=== PATIENT | female | born 1955 | race Caucasian/White ===

== ENCOUNTER → 2017-03-12 | Outpatient (CLI) | payer BC ==
--- NOTE | 2017-03-12 15:16 | MAMMOGRAPHY REPORT ---
BILATERAL DIGITAL SCREENING MAMMOGRAM TOMOSYNTHESIS WITH CAD: 03/12/2017 TECHNIQUE: Breast tomosynthesis in addition to standard 2D mammography was performed. Current study was also evaluated with a Computer Aided Detection (CAD) system. COMPARISON: Comparison is made to exams dated: 01/19/2016 mammogram, 01/13/2015 mammogram, 11/24/2013 mammogram, 09/22/2012 mammogram, 08/21/2011 mammogram, and 08/01/2010 mammogram - [facility]. BREAST COMPOSITION: The tissue of both breasts is almost entirely fatty. FINDINGS: No suspicious masses, calcifications, or areas of architectural distortion are noted in ei ther breast. There has been no significant interval change compared to prior exams. IMPRESSION: ACR BI-RADS CATEGORY 1: NEGATIVE There is no mammographic evidence of malignancy. A 1 year screening mammogram is recommended. The pa tient will receive written notification of the results. Approximately 10% of breast cancers are not detected with mammography. A negative mammographic report should not delay biopsy if a clinically suggestive mass is present. Sendy Ceballos M.D. ah/:03/12/2017 11:34:50 Hand Inserter Operator: Abby Will RT(R)(M), [facility] letter sent: Normal 1/2 BI-RADS Code: ACR BI-RADS Category 1: Negative
== END | disposition home or self-care (01) ==
LOC: C.MAMM 10:34
PROVIDERS: ATTEND Family Medicine
DX: Z12.31 Encounter for screening mammogram for malignant neoplasm of breast (principal)

== ENCOUNTER → 2017-10-28 | Outpatient (CLI) | payer OTHER ==
[~2017-10-28] MED LIST: ATOR-24 PO; CYCL10TA6 PO; DIAZ-165 PO; LEVO100T7 PO; MELO7.5T5 PO; TRAM-10 PO
--- NOTE | 2017-10-28 15:14 | DIAGNOSTIC IMAGING REPORT ---
CHEST 2 VIEWS ROUTINE CLINICAL HISTORY: pat preoperative COMPARISON STUDY: No previous studies for comparison. FINDINGS: The bones soft tissues and hemidiaphragms are normal. The cardiomediastinal silhouette is normal. The lungs are clear. The pulmonary vasculature is normal. IMPRESSION: Negative chest. The above report was generated using voice recognition software. It may contain grammatical, syntax or spelling errors. Electronically signed by: Wade Hopkins M.D. 10/28/2017 3:12 PM Dictated Date/Time: 10/28/2017 3:12 PM
[2017-10-28 15:19] LABS: BASO % 0.5 %; BASO ABS # 0.03 K/uL (0-0.2); EOS % 2.1 %; EOS ABS # 0.14 K/uL (0-0.5); HEMATOCRIT 39.6 % (37-47); HEMOGLOBIN 13.2 g/dL (12.0-16.0); IG# 0.01 K/uL (0.00-0.02); LYMPH % 31.4 %; LYMPH ABS # 2.07 K/uL (1.2-3.4); MEAN CORPUSCULAR HGB CONC 33.3 g/dl (32-36); MEAN PLATELET VOLUME 8.8 fL (7.4-10.4); MONO % 7.9 %; MONO ABS # 0.52 K/uL (0.11-0.59); NEUT % 57.9 %; NEUT ABS # 3.82 K/uL (1.4-6.5); PLATELET COUNT 246 K/uL (130-400); RED CELL DISTRIBUTION WIDTH CV 13.7 % (11.5-14.5); WHITE BLOOD COUNT 6.59 K/uL (4.8-10.8)
[2017-10-28 15:25] LABS: ALBUMIN 3.5 gm/dl (3.4-5.0); BLOOD UREA NITROGEN 14 mg/dl (7-18); CALCIUM 9.1 mg/dl (8.5-10.1); CARBON DIOXIDE 27 mmol/L (21-32); GLUCOSE 103 mg/dl (70-99); SODIUM 142 mmol/L (136-145)
[2017-10-28 15:44] LABS: PTT PATIENT 24.9 SECONDS (21.0-31.0)
[2017-10-29 05:44] LABS: HEMOGLOBIN A1C 5.9 % (4.5-5.6)
== END | disposition home or self-care (01) ==
LOC: C.CPL 13:47
DX: Z01.818 Encounter for other preprocedural examination (principal)

== ENCOUNTER 2017-11-20 05:46 | Inpatient (IN) | payer BC, OTHER ==
[2017-10-23 15:20] VITALS: BMI 34.0
[2017-10-28 14:17] VITALS: BMI 35.0
--- NOTE | 2017-10-28 14:25 | PAT Medication Instructions ---
Service Date Oct 28, 2017. Current Home Medication List Atorvastatin (Lipitor), 40 MG PO HS Cyclobenzaprine Hcl (Flexeril), 10 MG PO PRN Diazepam (Valium), 5 MG PO PRN Levothyroxine Sodium (Levothyroxine Sodium), 1 TAB PO HS Meloxicam (Mobic), 15 MG PO QAM Tramadol (Ultram), 50 MG PO BID PRN for PRN Medication Instructions For Your Scheduled Surgery -Check with surgeon for instructions: Meloxicam (Mobic), 15 MG PO QAM - Hold the following medications the morning of surgery: Cyclobenzaprine Hcl (Flexeril), 10 MG PO PRN - Take the following medications the morning of surgery with a sip of water: Diazepam (Valium), 5 MG PO PRN (if needed) Tramadol (Ultram), 50 MG PO BID PRN for PRN (if needed, may be take up to four hours before surgery) - Take the following medications as scheduled the night before surgery: Atorvastatin (Lipitor), 40 MG PO HS Cyclobenzaprine Hcl (Flexeril), 10 MG PO PRN (if needed) Diazepam (Valium), 5 MG PO PRN (if needed) Levothyroxine Sodium (Levothyroxine Sodium), 1 TAB PO HS Tramadol (Ultram), 50 MG PO BID PRN for PRN (if needed) If you have any questions please call us at [phone] or [phone] or [phone]
--- NOTE | 2017-11-19 12:38 | HISTORY & PHYSICAL EXAMINATION ---
DATE OF ADMISSION: 11/20/2017 CHIEF COMPLAINT: Left knee pain. HISTORY OF PRESENT ILLNESS: The patient is a 62-year-old female with known osteoarthritis about her left knee. She has had previous corticosteroid as well as viscosupplementation injections. She continues to have pain and disability with activities of daily living. She has pain with prolonged weightbearing and standing activities. She has difficulty with any kneeling, bending, or squatting activities. Due to ongoing pain and disability, she now desires to proceed with left total knee arthroplasty. PAST MEDICAL HISTORY: Hypercholesterolemia, hypothyroidism, osteoarthritis, obesity. PAST SURGICAL HISTORY: x2, foot surgery, shoulder surgery. MEDICATIONS: Atorvastatin, levothyroxine, tramadol p.r.n. ALLERGIES: TETANUS VACCINE, WHICH CAUSES A RED SWOLLEN RASH. SOCIAL HISTORY AND REVIEW OF SYSTEMS: Noncontributory. PHYSICAL EXAMINATION: GENERAL: Well-nourished, well-developed female who appears stated age. HEENT: Normocephalic, atraumatic, extraocular movements intact, oropharynx pink and moist. NECK: Supple without adenopathy. LUNGS: Clear to auscultation bilaterally. HEART: Regular rate and rhythm. ABDOMEN: Soft, nontender, nondistended, obese. EXTREMITIES: The upper extremities are within normal limits. The left knee has a neutral alignment. Her range of motion is approximately 0-125 degrees. She complains primarily of medial compartment pain. She has mild crepitus with range of motion. X-RAYS: X-rays were reviewed. She has a neutrally aligned knee. She has bone on bone arthritis of medial compartment with complete loss of the joint space. She has mild degenerative change about the patellofemoral joint. ASSESSMENT: Left knee degenerative joint disease. PLAN: Risks versus benefits were discussed, consent was obtained. The patient's primary care physician is Dr. Shana Aden. We will proceed with left total knee arthroplasty as indicated.
[~2017-11-20] VITALS: Ht 167.6 cm; Wt 95.5 kg
[2017-11-20] VITALS (10 sets, daily range): BP systolic 103–139; BP diastolic 67–79; PULSE 78–96; TEMP 36.4–37; O2SAT 93–100; Ht 167.6 cm; Wt 95.5 kg
[2017-11-20] MEDS ORDERED: ACETAMINOPHEN 500 MG TAB PO SCH (06:00)
[2017-11-20] MEDS ORDERED: LACTATED RINGER'S 1000ML 1,000 ML IV SCH (06:00)
[2017-11-20] MEDS ORDERED: DEXAMETHASONE 4 MG TAB PO SCH (06:00)
[2017-11-20] MEDS ORDERED: METOCLOPRAMIDE HCL 10 MG TAB PO SCH (06:00)
[2017-11-20] MEDS ORDERED: FAMOTIDINE 20 MG TAB PO SCH (06:00)
[2017-11-20] MEDS ORDERED: GABAPENTIN 300 MG CAP PO SCH (06:00)
[2017-11-20] MEDS ORDERED: LACTATED RINGER'S 1000ML 500 ML IV SCH (06:00)
[2017-11-20] MEDS ORDERED: CeleBREX 200 MG CAP PO SCH (06:00)
[2017-11-20] MEDS ORDERED: CEFAZOLIN 2000MG IV PUSH 15 ML IV SCH (06:00)
[2017-11-20] MEDS: TRANEXAMIC ACID INJ 1,000 MG x 2 Bags IV SCH ×4 (06:30→07:46)
[2017-11-20] MEDS ORDERED: BUPIVACAINE 0.5 % 5 MG/1 ML PF 10ML VIAL ONE (06:33)
[2017-11-20] MEDS ORDERED: BUPIVACAINE 0.25% 30 ML VIAL ONE (06:33)
[2017-11-20] MEDS ORDERED: LIDOCAINE HCL 2% 2 ML VIAL (20MG/ML) ONE (06:37)
[2017-11-20] MEDS ORDERED: PROPOFOL IV EMULSION 10 MG/ML 20 ML VIAL ONE (06:37)
[2017-11-20] MEDS ORDERED: MIDAZOLAM HCL 1 MG/ML 2ML VIAL ONE ×2 (06:38→09:00)
[2017-11-20] MEDS ORDERED: ORTHO JOINT ANESTHETIC ONE (06:55)
[2017-11-20] MEDS ORDERED: POVIDONE-IODINE OP SOLN 30 ML BTL ONE (06:55)
[2017-11-20] MEDS ORDERED: BACITRACIN 50000 UNIT VIAL ONE (06:55)
--- NOTE | 2017-11-20 07:10 | History & Physical Bridge Note ---
H&P Re-Evaluation Bridge Note: I have examined the patient, reviewed the History & Physical and in the interval since the performance of the History & Physical I have noted the following changes of clinical significance: No changes noted
[2017-11-20] MEDS ORDERED: FENTANYL CITRATE INJ 50 MCG/1 ML 2 ML VIAL ONE (08:21)
[2017-11-20] MEDS: ROPIVACAINE 5MG/ML 30 ML 150 MG, BUPIVACAINE 0.5% MPF INJ 30 ML, EpINEphrine HCL INJ 0.... INFIL SCH ×24 (09:07→09:09)
--- NOTE | 2017-11-20 09:11 | [facility] Post Operative Brief Note ---
Immediate Operative Summary Operative Date Nov 20, 2017. Pre-Operative Diagnosis Left Knee Degenerative Joint Disease Post-Operative Diagnosis Left Knee Degenerative Joint Disease Procedure(s) Performed Left Total Knee Arthroplasty Surgeon Dr. Baxter Qa Automation Architect Surgeon(s) Rigo Patricio PA-C Estimated Blood Loss 10 ML Findings Consistent with Post-Op Diagnosis Specimens Permanent A. Left Knee Bone and Tissue Drains None Anesthesia Type MAC Spinal Regional Complication(s) none Disposition Accompanied Pt To Recover: no Disposition: Recovery Room / PACU Overlapping Procedure I was present for: the critical portions of procedure. I was immediately available: during the entire case
[2017-11-20] MEDS ORDERED: ATROPINE SULFATE 0.1 MG/ML 5ML SYR IV PRN (09:30)
[2017-11-20] MEDS ORDERED: PHENYLEPHRINE 100MCG/ML 5ML SYR IV PRN (09:30)
[2017-11-20] MEDS ORDERED: MoRPHine SULFATE 10 MG/ML CARP/VIAL IV PRN (09:30)
[2017-11-20] MEDS ORDERED: ONDANSETRON INJ 2 MG/ML 2 ML VIAL IV PRN (09:30)
[2017-11-20] MEDS ORDERED: KETOROLAC TROMETHAMINE 30 MG/ML VIAL IV. PRN (09:30)
[2017-11-20] MEDS ORDERED: EpHEDrine SULFATE INJ 50 MG/ML AMP IV PRN (09:30)
[2017-11-20] MEDS ORDERED: BISACODYL 10 MG SUPP PR PRN (10:00)
[2017-11-20] MEDS ORDERED: ALUMINUM/MAGNESIUM/SIMETH (MAALOX MAX) 30 ML UDC PO PRN (10:00)
[2017-11-20] MEDS ORDERED: DIAZEPAM 5MG TAB PO PRN (10:00)
[2017-11-20] MEDS ORDERED: MAGNESIUM HYDROXIDE SUSP 30 ML UDC PO PRN (10:00)
--- NOTE | 2017-11-20 10:07 | DIAGNOSTIC IMAGING REPORT ---
L KNEE 1 OR 2 VIEWS ROUTINE CLINICAL HISTORY: 62 years-old Female presenting with AP/LATERAL IN PACU LEFT KNEE. TECHNIQUE: Frontal and lateral views of the left knee were obtained. COMPARISON: None. FINDINGS: Postsurgical changes of total left knee arthroplasty with patellar resurfacing. No malalignment. No periprosthetic fracture. Screw tracks evident through the medial and lateral tibial plateau. A surgical drain is in place. Expected intra-articular and soft tissue emphysema. IMPRESSION: Expected postsurgical appearance status post total left knee arthroplasty with patellar resurfacing. Electronically signed by: Reece Torre M.D. 11/20/2017 10:06 AM Dictated Date/Time: 11/20/2017 10:05 AM
--- NOTE | 2017-11-20 11:23 | Anesthesiology Progress Note ---
Anesthesia Post Op Note Date & Time Nov 20, 2017 at 11:23 Vital Signs Pain Intensity: 0 Vital Signs Past 12 Hours Date Time Temp Pulse Resp B/P (MAP) Pulse Ox O2 Delivery O2 Flow Rate FiO2 11/20/17 10:49 78 11 11/20/17 10:49 78 11 98 11/20/17 10:46 108/69 11/20/17 10:44 76 12 99 11/20/17 10:44 76 12 11/20/17 10:41 106/72 11/20/17 10:39 77 14 99 11/20/17 10:39 77 14 11/20/17 10:38 78 15 99 11/20/17 10:38 77 15 11/20/17 10:36 98/70 11/20/17 10:33 77 14 11/20/17 10:33 77 14 99 11/20/17 10:32 73 13 11/20/17 10:32 72 13 99 11/20/17 10:31 106/67 11/20/17 10:28 36.7 78 16 106/67 (76) 99 Nasal Cannula 2 11/20/17 10:28 74 13 98 11/20/17 10:28 74 13 11/20/17 10:27 76 14 99 11/20/17 10:27 76 14 11/20/17 10:26 104/70 11/20/17 10:22 75 13 11/20/17 10:22 74 13 100 11/20/17 10:21 101/70 11/20/17 10:17 78 11 11/20/17 10:17 76 11 100 11/20/17 10:16 106/70 11/20/17 10:12 78 12 100 11/20/17 10:12 77 12 11/20/17 10:11 81 12 11/20/17 10:11 81 12 115/66 100 11/20/17 10:06 82 17 11/20/17 10:06 82 17 95/63 100 11/20/17 10:01 82 16 102/67 100 18 10:01 81 16 11/20/17 09:56 80 14 99/66 100 18 09:56 80 14 18 09:52 101/68 11/20/17 09:51 80 18 100 11/20/17 09:51 37.1 81 16 101/68 (76) 100 Oxymask 10 11/20/17 09:51 80 18 11/20/17 06:18 36.5 82 20 139/79 99 Room Air Notes Mental Status: alert / awake / arousable, participated in evaluation Pt Amnestic to Procedure: Yes Nausea / Vomiting: adequately controlled Pain: adequately controlled Airway Patency, RR, SpO2: stable & adequate BP & HR: stable & adequate Hydration State: stable & adequate Anesthetic Complications: no major complications apparent
--- NOTE | 2017-11-20 12:18 | OPERATIVE REPORT ---
DATE OF OPERATION: 11/20/2017 PREOPERATIVE DIAGNOSIS: Osteoarthritis, left knee. POSTOPERATIVE DIAGNOSIS: Osteoarthritis, left knee. PROCEDURE: Left total knee arthroplasty. SURGEON: Dr. Baxter. UNIT MANAGER RN: YUE Hernandez ANESTHESIA: Spinal. COMPLICATIONS: None. IMPLANTS USED: Femoral size 4, tibia size 3, tibial poly 16, patella size 33. DISPOSITION: Recovery room, stable. OPERATION AND FINDINGS: Following induction of spinal anesthesia, the patient's left leg was prepped and draped in the usual sterile manner. Limb was exsanguinated with an Esmarch bandage and tourniquet was inflated to 350 mmHg. A longitudinal incision was made anteriorly. Subcutaneous tissue was sharply dissected. Electrocautery was used for hemostasis. Prepatellar bursa was incised and median parapatellar incision was performed. Patella was everted and the knee was flexed. Fat pad was removed to aid in visualization and the anterior and posterior cruciate ligaments were removed. The medial face of the tibia was cleared of soft tissue first with a Bovie and a Negrete elevator. This tissue was retracted posteriorly using a blunt Hohmann. A Faith retractor was used to expose the synovium above on the anterior aspect of the femur and this was removed down to bone. The PSI guide was placed on the distal femur and two pins were placed anteriorly and kept in position and two additional pins were placed distally and removed. The distal femoral cutting block was placed in position and the distal femoral cut was used in the +0 setting. Next, the cutting block was removed and the femoral 4 block was placed in the distal end of the femur. Care was taken to ensure appropriate external rotation and feeler gauge was used to ensure no notching would occur. The femoral block was centered on the distal femur and in the medial and lateral direction and was fixed using two bone screws. The gold pins were then removed. The oscillating saw was used to create the bone cuts and the distal femoral cutting block was removed and the reciprocating saw was used to further trim the femoral cuts as well as a deep in the area for the trochlear groove. Next, posterior condyle remnants were removed. Following this, a meniscal clamp and knife were utilized to remove the anterior portion of both medial and lateral meniscus. The proximal tibia PSI guide was placed into position and the proximal tibial cutting guide was screwed into position. The extra medullary alignment guide was utilized to ensure appropriate alignment. The proximal tibia was cut and the proximal tibial cutting block was removed and this bone fragment was removed. The appropriate guide was used to perform the notch cut on the distal femur and a lamina manager nuclear and a cochlear knife were utilized to finish both medial and lateral meniscectomies to remove any remnants of the posterior or anterior cruciate ligaments. Following this, the distal femoral component was impacted into position and blunt Laura was used to sublux the tibia anteriorly. The proximal tibia was sized and a 3 tibial tray was chosen as the size to be used. This was put into position and appropriate external rotation and a double check with extramedullary alignment guide was performed. The canal for the tibial stem was prepared first with a 17 mm drill and then the punch and a mallet and the trial tibial poly was placed. A 16 was chosen the size to be used. It was brought to extension and the patella was prepared with the patellar reamer. A 33 component was chosen the size to be used. The trial component was placed and knee was taken through a full range of motion and there was found to be no lateral subluxation of the tibia. No lateral release was required. The trials were all removed. The final components were obtained and assembled. Cement was mixed. The knee was thoroughly irrigated and the ortho mix was injected about the knee joint. The final components were cemented into position. After thoroughly suctioning and drying the bone ends, all excess cement was removed. The knee was held in extension while the cement hardened. The wound was irrigated and closed over a Hemovac drain. #1 Vicryl was used to close the extensor mechanism. Subcutaneous tissues closed using 0 Dexon. Skin was closed with rubén. Sterile dressing of Adaptic, 4 x 4's, sterile Webril, and Edgar was applied. The patient tolerated the procedure well. Due to the complex nature of the procedure, the entire surgery was performed with the operational assistance of YUE Hernandez. The assistant surveyor, under direct supervision, was involved in the actual performance of all aspects of the surgical procedure including hemostasis, tissue retraction and incision, instrument management, patient positioning, and wound closure. I attest to the content of the Intraoperative Record and any orders documented therein. Any exception s are noted below.
[2017-11-20] MEDS: FERROUS GLUCONATE 324 MG TAB PO SCH ×2 (13:03→17:50)
[2017-11-20] MEDS: D5W AND 1/2NSS + 20MEQ KCL 1,000 ML IV SCH ×2 (13:03→22:50)
[2017-11-20] MEDS: KETOROLAC TROMETHAMINE 30 MG/ML VIAL IV. SCH ×2 (13:49→20:14)
[2017-11-20] MEDS: ACETAMINOPHEN 500 MG TAB PO SCH ×2 (13:50→20:17)
[2017-11-20] MEDS: CEFAZOLIN IV 2,000 MG in SYRINGE 0 ML IV SCH ×2 (15:46→23:44)
[2017-11-20] MEDS: MoRPHine SULFATE 2 MG/ML CARP IV PRN ×2 (15:46→20:14)
[2017-11-20] MEDS: OXYCODONE HCL IR 5 MG TAB (IMMEDIATE RELEASE) PO PRN ×2 (17:51→23:44)
[2017-11-20] MEDS: DOCUSATE SODIUM 100 MG CAP PO SCH (20:15)
[2017-11-20] MEDS: SENNA 8.6 MG TAB PO SCH (20:16)
[2017-11-20] MEDS: ASPIRIN 81 MG ECTAB PO SCH (20:16)
[2017-11-20] MEDS: ATORVASTATIN 40 MG TAB PO SCH (20:16)
[2017-11-20] MEDS: LEVOTHYROXINE 100 MCG TAB PO SCH (20:17)
[2017-11-21] MEDS: KETOROLAC TROMETHAMINE 30 MG/ML VIAL IV. SCH ×2 (02:26→08:18)
[2017-11-21] MEDS: MoRPHine SULFATE 2 MG/ML CARP IV PRN ×4 (02:28→23:48)
[2017-11-21 03:14] VITALS: BP 119/77; PULSE 87; TEMP 36.5; O2SAT 97
[2017-11-21] MEDS: ACETAMINOPHEN 500 MG TAB PO SCH ×3 (05:53→21:44)
[2017-11-21 06:11] LABS: HEMATOCRIT 35.2 % (37-47); HEMOGLOBIN 12.1 g/dL (12.0-16.0); MEAN CORPUSCULAR HEMOGLOBIN 30.9 pg (25-34); MEAN CORPUSCULAR HGB CONC 34.4 g/dl (32-36); MEAN PLATELET VOLUME 9.1 fL (7.4-10.4); PLATELET COUNT 215 K/uL (130-400); RED CELL DISTRIBUTION WIDTH CV 13.6 % (11.5-14.5); RED CELL DISTRIBUTION WIDTH SD 44.9 fL (36.4-46.3); WHITE BLOOD COUNT 13.23 K/uL (4.8-10.8)
[2017-11-21 06:40] LABS: CALCIUM 8.4 mg/dl (8.5-10.1); CREATININE 0.76 mg/dl (0.60-1.20); POTASSIUM 4.3 mmol/L (3.5-5.1)
[2017-11-21] MEDS: OXYCODONE HCL IR 5 MG TAB (IMMEDIATE RELEASE) PO PRN ×2 (07:15→13:38)
[2017-11-21 07:45] VITALS: BP 118/77; PULSE 89; TEMP 36.7; O2SAT 100
[2017-11-21] MEDS: FERROUS GLUCONATE 324 MG TAB PO SCH ×3 (08:18→17:35)
[2017-11-21] MEDS: D5W AND 1/2NSS + 20MEQ KCL 1,000 ML IV SCH (08:18)
[2017-11-21] MEDS: DOCUSATE SODIUM 100 MG CAP PO SCH ×2 (09:10→20:40)
[2017-11-21] MEDS: MULTIVITAMIN TAB PO SCH (09:10)
[2017-11-21] MEDS: ASPIRIN 81 MG ECTAB PO SCH ×2 (09:10→20:39)
--- NOTE | 2017-11-21 09:52 | Orthopedic Progress Note ---
Orthopedic Progress Note Date of Service Nov 21, 2017. Subjective Post OP Day: 1 Reports: feeling well, complaints (some pain in the knee this AM) Additional Notes: Did not sleep well but otherwise feeling ok. Having some calf pain in the left lower calf which she attributes to position in bed. Objective N/V intact, dressing C/D/I, A&O x3, toes mobile Calves are soft. No overt edema of the ankles. Laura's exam does not cause overt pain but patient states she feels it does increase slightly. Date Time Temp Pulse Resp B/P (MAP) Pulse Ox O2 Delivery O2 Flow Rate FiO2 11/21/17 07:45 36.7 89 18 118/77 (91) 100 Room Air 11/21/17 07:20 Room Air 11/21/17 03:14 36.5 87 16 119/77 (91) 97 Room Air 11/20/17 23:42 Room Air 11/20/17 23:22 36.7 82 16 108/67 (81) 96 Room Air 11/20/17 19:49 37.0 92 16 111/72 (85) 93 Room Air 11/20/17 15:40 96 Room Air 11/20/17 15:11 36.9 89 16 117/71 (86) 97 2.0 11/20/17 13:54 91 16 118/76 (90) 97 Nasal Cannula 2.0 11/20/17 13:00 96 16 128/76 (93) 98 Nasal Cannula 2.0 11/20/17 12:00 93 16 121/79 (93) 100 Nasal Cannula 2.0 11/20/17 11:30 36.4 85 16 103/68 (80) 99 2.0 11/20/17 11:00 36.4 78 16 108/73 (85) 96 Nasal Cannula 2.0 11/20/17 11:00 Nasal Cannula 2.0 11/20/17 11:00 Nasal Cannula 2.0 11/20/17 10:49 78 11 11/20/17 10:49 78 11 98 11/20/17 10:46 108/69 11/20/17 10:44 76 12 99 11/20/17 10:44 76 12 11/20/17 10:41 106/72 11/20/17 10:39 77 14 99 11/20/17 10:39 77 14 11/20/17 10:38 78 15 99 11/20/17 10:38 77 15 11/20/17 10:36 98/70 11/20/17 10:33 77 14 11/20/17 10:33 77 14 99 11/20/17 10:32 73 13 11/20/17 10:32 72 13 99 11/20/17 10:31 106/67 11/20/17 10:28 36.7 78 16 106/67 (76) 99 Nasal Cannula 2 11/20/17 10:28 74 13 98 11/20/17 10:28 74 13 11/20/17 10:27 76 14 99 11/20/17 10:27 76 14 11/20/17 10:26 104/70 11/20/17 10:22 75 13 11/20/17 10:22 74 13 100 11/20/17 10:21 101/70 11/20/17 10:17 78 11 11/20/17 10:17 76 11 100 11/20/17 10:16 106/70 11/20/17 10:12 78 12 100 11/20/17 10:12 77 12 11/20/17 10:11 81 12 11/20/17 10:11 81 12 115/66 100 11/20/17 10:06 82 17 11/20/17 10:06 82 17 95/63 100 11/20/17 10:01 82 16 102/67 100 11/20/17 10:01 81 16 11/20/17 09:56 80 14 99/66 100 11/20/17 09:56 80 14 11/20/17 09:52 101/68 11/20/17 09:51 80 18 100 11/20/17 09:51 37.1 81 16 101/68 (76) 100 Oxymask 10 11/20/17 09:51 80 18 Laboratory Results 24 Hours: Test 11/21/17 05:42 Hematocrit 35.2 % Hemoglobin 12.1 g/dL Assessment & Plan Assessment: POD 1 s/p Left TKA Plan: PT/OT Watch calf pain for now. Will recheck today for possible dc to home. Pt unsure at this time if she wants to go or not. Inhouse Planning Pain Management: Celebrex, Toradol, Morphine, PO Tylenol, Oxy IR DVT Prophylaxis: TEDs, SCDs, ASA Discharge Planning Discharge Planning: home with home health
[2017-11-21 15:35] VITALS: BP 121/80; PULSE 94; TEMP 36.8; O2SAT 100
[2017-11-21] MEDS: ONDANSETRON INJ 2 MG/ML 2 ML VIAL IV PRN (20:36)
[2017-11-21] MEDS: CeleBREX 200 MG CAP PO SCH (20:39)
[2017-11-21] MEDS: ATORVASTATIN 40 MG TAB PO SCH (20:39)
[2017-11-21] MEDS: LEVOTHYROXINE 100 MCG TAB PO SCH (20:39)
[2017-11-21] MEDS: SENNA 8.6 MG TAB PO SCH (20:40)
[2017-11-21 23:25] VITALS: BP 113/72; PULSE 87; TEMP 36.9; O2SAT 96
[2017-11-22] MEDS: ONDANSETRON INJ 2 MG/ML 2 ML VIAL IV PRN (04:35)
[2017-11-22] MEDS: MoRPHine SULFATE 2 MG/ML CARP IV PRN (04:36)
[2017-11-22] MEDS: ACETAMINOPHEN 500 MG TAB PO SCH (05:25)
[2017-11-22] MEDS: FERROUS GLUCONATE 324 MG TAB PO SCH ×2 (08:03→12:30)
[2017-11-22] MEDS: ASPIRIN 81 MG ECTAB PO SCH (08:28)
[2017-11-22] MEDS: CeleBREX 200 MG CAP PO SCH (08:28)
[2017-11-22] MEDS: DOCUSATE SODIUM 100 MG CAP PO SCH (08:29)
[2017-11-22] MEDS: MULTIVITAMIN TAB PO SCH (08:29)
[2017-11-22 08:45] VITALS: BP 128/81; PULSE 97; TEMP 36.5; O2SAT 97
[2017-11-22] MEDS ORDERED: FRRG PO (10:12)
[2017-11-22] MEDS ORDERED: ONDA-170 PO (10:12)
[2017-11-22] MEDS ORDERED: RXC5 PO (10:12)
[2017-11-22] MEDS ORDERED: ACET-24 PO (10:12)
[2017-11-22] MEDS ORDERED: ASPI-461 PO (10:12)
--- NOTE | 2017-11-22 10:15 | Discharge Instructions ---
Discharge Instructions Date of Service Nov 22, 2017. Admission Reason for Admission: Left Knee Osteoarthritis Discharge Discharge Diagnosis / Problem: Left TKA Discharge Goals Goal(s): Decrease discomfort, Improve function, Increase independence, Therapeutic intervention Activity Recommendations Activity Limitations: per Instructions/Follow-up section ACTIVITY RECOMMENDATIONS: SELF CARE INSTRUCTIONS AFTER TOTAL KNEE REPLACEMENT A. You may need to continue a physical therapy program after discharge from the hospital. There are several options available to you. Your doctor will assist you in selecting the best one for you. 1. An out-patient facility 2 to 3 times a week for therapy or home therapy. 2. Continue working on all exercises taught to you in the hospital. Your goals should be to increase bending of your knee to 90 degrees and beyond and to fully straighten your knee. B. You may progress at your own pace from walking with a walker or crutches to a cane; then to no assistive devices. C. Make walking a part of your daily routine. Be up as much as comfortable with rest periods throughout the day. Rest with leg elevation is very important. Use the ice wrap frequently for the first 3-4 weeks. D. There are no restrictions on activities. You may ride in a car, shop, participate in all terrain vehicle racer and all social activities. E. Wear the long elastic stockings (MAY hose) 20 hours a day for 2 weeks after surgery. They can be removed several times a day for laundering and for a bath. F. You may shower, no tub baths until cleared by your doctor. SPECIAL CARE INSTRUCTIONS: VERY IMPORTANT TO READ AND REVIEW A. There are a few signs you need to watch for after you are home. Call [facility] if you notice any of the followin. Increased severe knee pain. Some pain is expected especially when you exercise. 2. Increased swelling in your leg or knee; pain or swelling of the calf muscle in either lower leg. 3. Any fluid drainage from the incision. 4. Shortness of breath or chest pain. B. Please call [facility] at if you have any concerns or questions about your operation or recovery. The doctor or his nurse will return your call promptly. C. You must take antibiotics before dental work, bladder, bowel or other surgery. Your doctor will provide you with a permanent care to carry describing this precaution. IMPORTANT: * REMEMBER TO TAKE ASPIRIN, 81 MG, TWICE DAILY FOR 4 WEEKS UNLESS OTHERWISE DIRECTED. THIS IS YOUR BLOOD THINNER. * HIGH RISK PATIENTS MAY BE PRESCRIBED A STRONGER BLOOD THINNER. THIS WILL BE PROVIDED AT DISCHARGE. * CALL IF INCREASED PAIN, REDNESS, DRAINAGE OR FEVER GREATER THAT 101. * WEAR MAY HOSE 20 HOURS PER DAY FOR 2 WEEKS. * YOU MAY HAVE A LARGE BAND-AID LIKE DRESSING (SILVERON). THIS WILL REMAIN ON YOUR INCISION FOR 7 DAYS, THEN CAN BE REMOVED. IF INCISION IS LEAKING THROUGH DRESSING, CALL THE OFFICE . FOLLOW UP VISIT: If appointment is not already scheduled: Please call [facility] to make a follow-up appointment for 2 weeks after your surgery at . . Current Hospital Diet Patient's current hospital diet: Regular Diet Discharge Diet Recommended Diet: Regular Diet Procedures Procedures Performed: Left Total Knee Arthroplasty Pending Studies Studies pending at discharge: no Laboratory Results Hemoglobin A1c Test 10/28/17 14:45 Range/Units Estimated Average Glucose 123 mg/dl Hemoglobin A1c 5.9 H 4.5-5.6 % Medical Emergencies . Who to Call and When: Medical Emergencies: If at any time you feel your situation is an emergency, please call 911 immediately. . Non-Emergent Contact Non-Emergency issues call your: Primary Care Provider . "Provider Documentation" section prepared by Xiomara Goldstein. . [place] Drug Monitoring Program Search Results: patient reviewed within database, no issues identified
--- NOTE | 2017-11-22 10:18 | Orthopedic Progress Note ---
Orthopedic Progress Note Date of Service Nov 22, 2017. Subjective Post OP Day: 2 Reports: feeling well, nausea / vomiting (mild nausea after iron pill today), pain controlled w PO medications, Denies: chest pain, SOB, light headedness, calf pain Objective calves soft nontender (some mild continuing calf pain. ), N/V intact, capillary refill less than 2 sec., dressing C/D/I, A&O x3, toes mobile Date Time Temp Pulse Resp B/P (MAP) Pulse Ox O2 Delivery O2 Flow Rate FiO2 11/22/17 08:45 36.5 97 16 128/81 (97) 97 Room Air 11/21/17 23:42 Room Air 11/21/17 23:25 36.9 87 16 113/72 (86) 96 Room Air 11/21/17 15:35 36.8 94 18 121/80 (94) 100 Room Air 11/21/17 15:30 Room Air Assessment & Plan Assessment: POD 2 s/p Left TKA Plan: PT/OT Will order doppler today to rule out DVT given continued calf pain. if neg, plan for DC home today Inhouse Planning Pain Management: Celebrex, PO Tylenol, Oxy IR DVT Prophylaxis: TEDs, SCDs, ASA Discharge Planning Discharge Planning: home with home health Pain Management: PO Tylenol, Oxy IR DVT Prophylaxis: TEDs, ASA Therapy: Physical Therapy
--- NOTE | 2017-11-22 10:25 | Discharge Instructions ---
Discharge Instructions Date of Service Nov 22, 2017. Admission Reason for Admission: Left Knee Osteoarthritis Discharge Discharge Diagnosis / Problem: Left TKA Discharge Goals Goal(s): Decrease discomfort, Improve function, Increase independence, Therapeutic intervention Activity Recommendations Activity Limitations: per Instructions/Follow-up section ACTIVITY RECOMMENDATIONS: SELF CARE INSTRUCTIONS AFTER TOTAL KNEE REPLACEMENT A. You may need to continue a physical therapy program after discharge from the hospital. There are several options available to you. Your doctor will assist you in selecting the best one for you. 1. An out-patient facility 2 to 3 times a week for therapy or home therapy. 2. Continue working on all exercises taught to you in the hospital. Your goals should be to increase bending of your knee to 90 degrees and beyond and to fully straighten your knee. B. You may progress at your own pace from walking with a walker or crutches to a cane; then to no assistive devices. C. Make walking a part of your daily routine. Be up as much as comfortable with rest periods throughout the day. Rest with leg elevation is very important. Use the ice wrap frequently for the first 3-4 weeks. D. There are no restrictions on activities. You may ride in a car, shop, participate in leadership development manager and all social activities. E. Wear the long elastic stockings (MAY hose) 20 hours a day for 2 weeks after surgery. They can be removed several times a day for laundering and for a bath. F. You may shower, no tub baths until cleared by your doctor. SPECIAL CARE INSTRUCTIONS: VERY IMPORTANT TO READ AND REVIEW A. There are a few signs you need to watch for after you are home. Call [facility] if you notice any of the followin. Increased severe knee pain. Some pain is expected especially when you exercise. 2. Increased swelling in your leg or knee; pain or swelling of the calf muscle in either lower leg. 3. Any fluid drainage from the incision. 4. Shortness of breath or chest pain. B. Please call [facility] at if you have any concerns or questions about your operation or recovery. The doctor or his nurse will return your call promptly. C. You must take antibiotics before dental work, bladder, bowel or other surgery. Your doctor will provide you with a permanent care to carry describing this precaution. IMPORTANT: * REMEMBER TO TAKE ASPIRIN, 81 MG, TWICE DAILY FOR 4 WEEKS UNLESS OTHERWISE DIRECTED. THIS IS YOUR BLOOD THINNER. * HIGH RISK PATIENTS MAY BE PRESCRIBED A STRONGER BLOOD THINNER. THIS WILL BE PROVIDED AT DISCHARGE. * CALL IF INCREASED PAIN, REDNESS, DRAINAGE OR FEVER GREATER THAT 101. * WEAR MAY HOSE 20 HOURS PER DAY FOR 2 WEEKS. * YOU MAY HAVE A LARGE BAND-AID LIKE DRESSING (SILVERON). THIS WILL REMAIN ON YOUR INCISION FOR 7 DAYS, THEN CAN BE REMOVED. IF INCISION IS LEAKING THROUGH DRESSING, CALL THE OFFICE . FOLLOW UP VISIT: If appointment is not already scheduled: Please call [facility] to make a follow-up appointment for 2 weeks after your surgery at . . Current Hospital Diet Patient's current hospital diet: Regular Diet Discharge Diet Recommended Diet: Regular Diet Procedures Procedures Performed: Left Total Knee Arthroplasty Pending Studies Studies pending at discharge: no Laboratory Results Hemoglobin A1c Test 10/28/17 14:45 Range/Units Estimated Average Glucose 123 mg/dl Hemoglobin A1c 5.9 H 4.5-5.6 % Medical Emergencies . Who to Call and When: Medical Emergencies: If at any time you feel your situation is an emergency, please call 911 immediately. . Non-Emergent Contact Non-Emergency issues call your: Primary Care Provider . "Provider Documentation" section prepared by Xiomara Goldstein. . [place] Drug Monitoring Program Search Results: patient reviewed within database, no issues identified
--- NOTE | 2017-11-22 10:29 | DIAGNOSTIC IMAGING REPORT ---
L VENOUS DOPP LOWER EXT UNILAT CLINICAL HISTORY: 62 years-old Female presenting with Rule out DVT of LLE, recent knee surgery. TECHNIQUE: Real-time grayscale and color and spectral Doppler ultrasound imaging of the veins of the left lower extremity was performed. Compression and augmentation were also utilized. COMPARISON: None. FINDINGS: LEFT: Common femoral vein: Patent. Greater saphenous vein: Patent. Deep femoral vein: Patent. Femoral vein: Patent. Popliteal vein: Patent. Calf veins: Patent. Other: None. IMPRESSION: No evidence of deep venous thrombosis. Electronically signed by: Reece Torre M.D. 11/22/2017 10:27 AM Dictated Date/Time: 11/22/2017 10:27 AM
[2017-11-22] MEDS: OXYCODONE HCL IR 5 MG TAB (IMMEDIATE RELEASE) PO PRN (10:37)
[2017-11-22 12:20] VITALS: BP 128/81; PULSE 97; TEMP 36.5; O2SAT 97
--- NOTE | 2017-11-27 12:32 | DISCHARGE SUMMARY ---
DISCHARGE DIAGNOSIS: Degenerative joint disease, left knee. SECONDARY DIAGNOSES: Hypercholesterolemia, hypothyroidism, osteoarthritis, obesity. CONSULTS: None. COMPLICATIONS: None. PROCEDURES: Left total knee arthroplasty performed by Dr. Baxter on 11/20/2017. BRIEF HISTORY: As dictated in the history of present illness. HOSPITAL SUMMARY: Patient was admitted on the above date and had the above noted surgery performed which she tolerated well. On the first postoperative day, patient was feeling well and had some pain in the knee that morning. He did not sleep well. He was having some calf pain in the left lower calf, which she attributed to positioning in the bed. Neurovascular was intact. Dressings clean, dry, and intact. Toes are mobile. Calves were soft, and she had no overt edema of the ankles. Homans' exam did not cause overt pain, but patient stated that she felt that the pain was slightly increased with dorsiflexion of the foot. Vital signs were stable, she was afebrile. Hemoglobin was 12.1. She was started on physical therapy protocol and continued on DVT prophylaxis and pain management. Plans were to recheck her late in the day to see how she was doing, if she could possibly go home versus staying overnight. If the calf pain worsened or continued, we would plan for an ultrasound. Patient decided to stay for 1 more day, and by the morning of her second postoperative day, she was having some nausea after her iron pill but was otherwise feeling well. Calves were soft and nontender. She has continued with the mild calf pain. Neurovascular was intact. Dressings clean, dry, and intact. Toes were mobile. Doppler was ordered to rule out DVT. The Doppler did come back negative for DVT. She had been continued on PT protocol and was progressing and was felt she could be discharged to home on 11/22/2017. For further review, please see chart. LABORATORY AND X-RAY DATA: As per chart. DISCHARGE INSTRUCTIONS: Patient was discharged home in satisfactory condition on 11/22/2017. Diet: Regular. Activity: Follow TK instruction sheets and special care instructions as noted and follow up with Dr. Baxter in 2 weeks. Patient to call for appointment if one has not been made for you. DISCHARGE MEDICATIONS: Acetaminophen 1000 mg p.o. q.8 h. for 30 days, aspirin 81 mg p.o. b.i.d. for 30 days, ferrous gluconate 324 mg p.o. t.i.d. 30 days, Zofran 8 mg p.o. q.8 h. p.r.n. nausea, oxycodone 5-10 mg p.o. q.4 h. p.r.n. Resume home medications as listed and stop taking meloxicam and tramadol.
== END 2017-11-22 13:02 | disposition home health service (06) | DRG 470 ==
LOC: C.ACU 05:46 → C.3E 09:58 → ENRESERV 10:29
PROC: 0SRD0J9 Replacement of Left Knee Joint with Synthetic Substitute, Cemented, Open Approach (ICD-10-PCS; principal; 2017-11-20 08:15)
DX: M17.12 Unilateral primary osteoarthritis, left knee (principal); E78.5 Hyperlipidemia, unspecified; E03.9 Hypothyroidism, unspecified; E66.9 Obesity, unspecified